=== PATIENT | female | born 1995 | race African-American/Black ===

== ENCOUNTER 2023-11-15 21:34 | Emergency (ER) | payer MEDICAID, OTHER ==
[~2023-11-15] VITALS: Ht 165.1 cm; Wt 54.4 kg
[2023-11-15 21:40] VITALS: TEMP 98.3
[2023-11-15] MEDS ORDERED: ALBU8.5H8 INH (21:49)
[2023-11-15] MEDS ORDERED: ALBUTEROL FS 2.5 MG/0.5 ML VIAL.NEB ONE (22:04)
[2023-11-15 22:10] VITALS: O2SAT 97
[2023-11-15] MEDS: ALBUTEROL FS 2.5 MG/0.5 ML VIAL.NEB NEB ONE (22:10)
[2023-11-15 22:20] VITALS: O2SAT 99
[2023-11-15 22:28] VITALS: BP 135/70; O2SAT 99
== END 2023-11-15 22:28 | disposition home or self-care (01) ==
LOC: ER 21:39
DX: J98.01 Acute bronchospasm (principal); Z79.899 Other long term (current) drug therapy
CPT/HCPCS: 71045-TC